=== PATIENT | female | born 1995 | race Caucasian/White ===

== ENCOUNTER 2024-09-01 17:31 | Emergency (ER) | payer SELFPAY ==
[~2024-09-01] VITALS: Ht 170.2 cm; Wt 91.0 kg
[2024-09-01 18:19] VITALS: TEMP 99.4; O2SAT 100
[2024-09-01 22:44] VITALS: BP 139/77; PULSE 94; RESP 16; O2SAT 100
== END 2024-09-01 22:48 | disposition home or self-care (01) ==
LOC: ER 17:31
DX: J02.8 Acute pharyngitis due to other specified organisms (principal); B97.89 Other viral agents as the cause of diseases classified elsewhere; R09.81 Nasal congestion
CPT/HCPCS: 87070; 87430; 99283